=== PATIENT | female | born 1975 | race Caucasian/White ===

== ENCOUNTER 2017-11-02 08:31 | Outpatient (CLI) | payer MEDICARE | END 2017-11-02 08:32 | disposition home or self-care (01) | LOC: BICMAMMO 08:31 | PROVIDERS: ATTEND Family Medicine | DX: Z12.31 Encounter for screening mammogram for malignant neoplasm of breast (principal); Z01.419 Encounter for gynecological examination (general) (routine) without abnormal findings; Z80.3 Family history of malignant neoplasm of breast | CPT/HCPCS: 77063; 77067 ==

== ENCOUNTER 2019-01-08 14:56 | Outpatient (CLI) | payer MEDICARE ==
--- NOTE | 2019-01-08 15:28 | MMO ---
Bilateral MAMMO Bilat Screen [facility]. CLINICAL HISTORY: Patient is 43 years old and is seen for screening. The patient has the following family history of breast cancer: mother, at age 53. The patient has no personal history of cancer. VIEWS: The views performed were: bilateral craniocaudal with tomosynthesis and bilateral mediolateral oblique with tomosynthesis. FILMS COMPARED: The present examination has been compared to prior imaging studies performed at [facility] on 10/23/2016 and 11/02/2017. MAMMOGRAM FINDINGS: There are scattered fibroglandular densities. There are no suspicious masses, suspicious calcifications, or new areas of architectural distortion. IMPRESSION: THERE IS NO MAMMOGRAPHIC EVIDENCE OF MALIGNANCY. A ROUTINE FOLLOW-UP MAMMOGRAM IN 1 YEAR IS RECOMMENDED. THE RESULTS OF THIS EXAM WERE SENT TO THE PATIENT. ACR BI-RADS Category 1 - Negative MAMMOGRAPHY NOTE: 1. A negative mammogram report should not delay a biopsy if a dominant of clinically suspicious mass is present. 2. Approximately 10% to 15% of breast cancers are not detected by mammography. 3. Adenosis and dense breasts may obscure an underlying neoplasm. Reported by: DAVID MEJIA MD Electonically Signed: [id number]
== END 2019-01-08 14:57 | disposition home or self-care (01) ==
LOC: BICMAMMO 14:56
PROVIDERS: ATTEND Family Medicine
DX: Z12.31 Encounter for screening mammogram for malignant neoplasm of breast (principal); Z80.3 Family history of malignant neoplasm of breast
CPT/HCPCS: 77063; 77067

== ENCOUNTER 2020-02-11 12:49 | Outpatient (CLI) | payer MEDICARE ==
--- NOTE | 2020-02-11 13:11 | MMO ---
Bilateral MAMMO Bilat Screen [facility]. CLINICAL HISTORY: Patient is 44 years old and is seen for screening. The patient has the following family history of breast cancer: mother, at age 53. The patient has no personal history of cancer. VIEWS: The views performed were: bilateral craniocaudal with tomosynthesis and bilateral mediolateral oblique with tomosynthesis. FILMS COMPARED: The present examination has been compared to prior imaging studies performed at [facility] on 10/23/2016, 11/02/2017 and 01/08/2019. This study has been interpreted with the assistance of computer-aided detection. MAMMOGRAM FINDINGS: There are scattered fibroglandular densities. There are no suspicious masses, suspicious calcifications, or new areas of architectural distortion. IMPRESSION: THERE IS NO MAMMOGRAPHIC EVIDENCE OF MALIGNANCY. A ROUTINE FOLLOW-UP MAMMOGRAM IN 1 YEAR IS RECOMMENDED. THE RESULTS OF THIS EXAM WERE SENT TO THE PATIENT. ACR BI-RADS Category 1 - Negative MAMMOGRAPHY NOTE: 1. A negative mammogram report should not delay a biopsy if a dominant of clinically suspicious mass is present. 2. Approximately 10% to 15% of breast cancers are not detected by mammography. 3. Adenosis and dense breasts may obscure an underlying neoplasm. Reported by: DAVID MEJIA MD Electonically Signed: [id number]
== END 2020-02-11 12:50 | disposition home or self-care (01) ==
LOC: BICMAMMO 12:49
PROVIDERS: ATTEND Family Medicine
DX: Z12.31 Encounter for screening mammogram for malignant neoplasm of breast (principal); Z80.3 Family history of malignant neoplasm of breast
CPT/HCPCS: 77063; 77067

== ENCOUNTER 2020-10-08 19:30 | Outpatient (CLI) | payer MEDICARE | END 2020-10-08 19:31 | disposition home or self-care (01) | LOC: SLEEPLAB 19:30 | PROVIDERS: ATTEND Family Medicine | DX: F51.9 Sleep disorder not due to a substance or known physiological condition, unspecified (principal); G47.10 Hypersomnia, unspecified; G47.33 Obstructive sleep apnea (adult) (pediatric); R53.83 Other fatigue; R09.89 Other specified symptoms and signs involving the circulatory and respiratory systems; R51.9 Headache, unspecified; R06.83 Snoring; G47.00 Insomnia, unspecified; J45.909 Unspecified asthma, uncomplicated; E66.9 Obesity, unspecified; Z68.41 Body mass index [BMI] 40.0-44.9, adult | CPT/HCPCS: 95810 ==

== ENCOUNTER 2021-03-09 11:33 | Outpatient (CLI) | payer MEDICARE | END 2021-03-09 11:34 | disposition home or self-care (01) | LOC: BICMAMMO 11:33 | PROVIDERS: ATTEND Family Medicine | DX: Z12.31 Encounter for screening mammogram for malignant neoplasm of breast (principal); Z80.3 Family history of malignant neoplasm of breast | CPT/HCPCS: 77063; 77067 ==

== ENCOUNTER 2021-08-20 15:33 | Inpatient (IN) | payer MEDICARE, OTHER ==
[2021-08-20] MEDS ORDERED: Fentanyl 100 MCG/2 ML VIAL ONE ×2 (16:39→18:51)
[2021-08-20] MEDS ORDERED: Ondansetron PF 4 MG/2 ML Vial IVP PRN (16:52)
[2021-08-20] MEDS ORDERED: Acetaminophen 650 MG Suppository PR PRN (16:52)
[2021-08-20] MEDS ORDERED: Ondansetron ODT 4 MG TAB PO PRN (16:52)
[2021-08-20 17:06] LABS: PTT 28.9 sec (22.9-36.1); Prothrombin Time 13.4 sec (12.0-14.7)
[2021-08-20 17:08] LABS: Lactic Acid 3.6 mmol/L (0.5-2.2)
[2021-08-20] MEDS ORDERED: Ondansetron PF 4 MG/2 ML Vial ONE ×2 (17:35→19:03)
[2021-08-20] MEDS ORDERED: Piperacillin/Tazobactam 3.375 GM in Sodium Chloride 0.9% 100 ML IVPB SCH (18:00)
[2021-08-20] MEDS ORDERED: EPINEPHrine 1 MG/ML AMP ONE (18:20)
[2021-08-20] MEDS ORDERED: Bupivacaine 0.25% 10 ML VIAL ONE (18:20)
[2021-08-20] MEDS ORDERED: Famotidine/PF 20 mg/2ml Vial ONE (18:42)
[2021-08-20] MEDS ORDERED: Scopolamine 1.5 mg/72 hour Patch ONE (18:42)
[2021-08-20] MEDS ORDERED: Midazolam HCl 2 mg/2 ml Vial ONE (18:42)
[2021-08-20] MEDS ORDERED: Phenylephrine 10 MG/ML VIAL ONE (18:52)
[2021-08-20] MEDS ORDERED: SUGAMMADEX SODIUM 200 MG/2 ML VIAL ONE (18:52)
[2021-08-20] MEDS ORDERED: Dexamethasone 20 MG/5 ML VIAL ONE (19:03)
[2021-08-20] MEDS ORDERED: Vecuronium 10 MG VIAL ONE (19:03)
[2021-08-20] MEDS ORDERED: PROPOFOL 200 MG/20 ML VIAL ONE (19:03)
[2021-08-20] MEDS ORDERED: Lidocaine 1% PF 5 ML VIAL ONE (19:03)
[2021-08-20] MEDS ORDERED: Glycopyrrolate 0.2 MG/ML 5 ML SYRINGE ONE (19:03)
[2021-08-20] MEDS ORDERED: Rocuronium Bromide 10 MG/ML (10ML VIAL) ONE (19:03)
[2021-08-20] MEDS ORDERED: Promethazine HCl 25 MG/ML VIAL IVPB PRN (19:33)
[2021-08-20] MEDS ORDERED: Promethazine HCl 25 MG/ML VIAL IM PRN (19:33)
[2021-08-20] MEDS ORDERED: Ondansetron HCl/PF 4 MG/2 ML Vial IVP PRN (19:33)
[2021-08-20] MEDS: Acetaminophen 325 MG TAB PO PRN (22:16)
[2021-08-20] MEDS: Famotidine 20 MG TAB PO SCH (22:16)
[2021-08-20] MEDS: Sodium Chloride 0.9% 1,000 ML IV SCH (22:16)
[2021-08-20] MEDS: Famotidine/PF 20 mg/2ml Vial SLOW IVP SCH (22:17)
[2021-08-20] MEDS ORDERED: Morphine 4 MG/ML VIAL SLOW IVP PRN (22:30)
[2021-08-20 22:36] VITALS: BMI 40.6
[2021-08-20] MEDS: cefOXitin 2 GM in Sodium Chloride 0.9% 100 ML IVPB SCH (23:24)
[2021-08-21] MEDS: Acetaminophen 325 MG TAB PO PRN ×3 (05:10→20:51)
[2021-08-21] MEDS: cefOXitin 2 GM in Sodium Chloride 0.9% 100 ML IVPB SCH (05:11)
[2021-08-21] MEDS: Sodium Chloride 0.9% 1,000 ML IV SCH ×3 (05:11→20:48)
[2021-08-21 07:27] LABS: ALT (SGPT) 14 U/L (8-55); AST (SGOT) 12 U/L (5-34); Albumin 3.3 g/dL (3.5-5.0); Alkaline Phosphatase 74 U/L (40-110); Anion Gap 14 mmol/L (10-20); BUN (Urea Nitrogen) 12 mg/dL (7.0-18.7); Bilirubin, Total 0.6 mg/dL (0.2-1.2); Calc. Creatinine Clearance 126 mL/min (70-130); Calcium 8.5 mg/dL (7.8-10.44); Carbon Dioxide 22 mmol/L (22-29); Chloride 102 mmol/L (98-107); Globulin 3.2 g/dL (2.4-3.5); Glucose 177 mg/dL (70-105); Magnesium 1.6 mg/dL (1.6-2.6); Potassium 3.5 mmol/L (3.5-5.1); Protein, Total 6.5 g/dL (6.0-8.3); Sodium 134 mmol/L (136-145)
[2021-08-21 07:28] LABS: #Lymphocytes 0.6 thou/uL (1.20-3.40); #Monocytes 0.5 thou/uL (0.11-0.59); #Neutrophils 14.3 thou/uL (1.40-6.50); %Basophils 0.1 % (0.0-1.0); %Eosinophils 0.1 % (0.0-10.0); %Lymphocytes 3.8 % (21.0-51.0); %Monocytes 3.2 % (0.0-10.0); %Neutrophils 92.8 % (42.0-75.0); Hemoglobin 11.6 g/dL (12.0-16.0); Mean Corpuscular HGB CONC 32.1 g/dL (32.0-36.0); Mean Corpuscular Hemoglobin 28.9 pg (27.0-31.0); Mean Corpuscular Volume 90.1 fL (78.0-98.0); Mean Platelet Volume 8.6 fL (7.4-10.4); Platelet Count 212 thou/uL (130-400); RBC Distribution Width 14.5 % (11.5-14.5); Red Blood Cell (RBC) Count 4.01 mill/uL (4.20-5.40); White Blood Cell (WBC) Count 15.5 thou/uL (4.8-10.8)
[2021-08-21] MEDS: Famotidine 20 MG TAB PO SCH ×2 (08:13→20:51)
[2021-08-21] MEDS: Famotidine/PF 20 mg/2ml Vial SLOW IVP SCH ×2 (08:16→20:51)
[2021-08-21] MEDS ORDERED: Potassium Chloride 20 MEQ TAB PO SCH (10:00)
[2021-08-21] MEDS: traMADol HCl 50 MG TAB PO PRN ×2 (10:51→16:21)
[2021-08-21] MEDS: metroNIDAZOLE 500 MG TAB PO SCH ×2 (14:30→20:50)
[2021-08-21] MEDS: tiZANidine HCl 4 MG TAB PO PRN (20:50)
[2021-08-21] MEDS: Ciprofloxacin 500 MG TAB PO SCH (20:50)
[2021-08-21] MEDS: Fish Oil 1,000 MG CAP PO SCH (20:50)
[2021-08-21] MEDS: predniSONE 50 MG TAB PO SCH (20:51)
[2021-08-21] MEDS: Loratadine 10 MG TAB PO SCH (20:51)
[2021-08-21] MEDS: Montelukast Sodium 10 mg Tablet PO SCH (20:51)
[2021-08-21] MEDS: Fluticasone Propionate Nasal Spray 16 gm Bottle NASAL SCH (20:52)
[2021-08-22] MEDS: Sodium Chloride 0.9% 1,000 ML IV SCH ×3 (02:08→18:05)
[2021-08-22] MEDS: predniSONE 50 MG TAB PO SCH ×2 (02:08→07:48)
[2021-08-22] MEDS: Acetaminophen 325 MG TAB PO PRN ×2 (05:45→20:27)
[2021-08-22] MEDS: Ciprofloxacin 500 MG TAB PO SCH ×2 (05:45→20:27)
[2021-08-22] MEDS: tiZANidine HCl 4 MG TAB PO PRN ×2 (05:45→20:27)
[2021-08-22 06:35] LABS: #Lymphocytes 0.6 thou/uL (1.20-3.40); #Monocytes 0.5 thou/uL (0.11-0.59); #Neutrophils 11.2 thou/uL (1.40-6.50); %Basophils 0.1 % (0.0-1.0); %Eosinophils 0.1 % (0.0-10.0); %Lymphocytes 4.5 % (21.0-51.0); %Monocytes 3.8 % (0.0-10.0); %Neutrophils 91.5 % (42.0-75.0); Hemoglobin 10.2 g/dL (12.0-16.0); Mean Corpuscular HGB CONC 31.7 g/dL (32.0-36.0); Mean Corpuscular Volume 91.5 fL (78.0-98.0); Mean Platelet Volume 8.8 fL (7.4-10.4); Platelet Count 202 thou/uL (130-400); RBC Distribution Width 14.5 % (11.5-14.5); Red Blood Cell (RBC) Count 3.52 mill/uL (4.20-5.40); White Blood Cell (WBC) Count 12.3 thou/uL (4.8-10.8)
[2021-08-22 06:55] LABS: Anion Gap 11 mmol/L (10-20); BUN (Urea Nitrogen) 9 mg/dL (7.0-18.7); Calc. Creatinine Clearance 168 mL/min (70-130); Calcium 8.8 mg/dL (7.8-10.44); Carbon Dioxide 25 mmol/L (22-29); Chloride 104 mmol/L (98-107); Glucose 164 mg/dL (70-105); Potassium 4.4 mmol/L (3.5-5.1); Sodium 136 mmol/L (136-145)
[2021-08-22] MEDS: Fluticasone Propionate Nasal Spray 16 gm Bottle NASAL SCH ×2 (07:47→20:28)
[2021-08-22] MEDS: metroNIDAZOLE 500 MG TAB PO SCH ×3 (07:47→20:26)
[2021-08-22] MEDS: Cholecalciferol 1,000 UNITS (25 MCG) TAB PO SCH (07:48)
[2021-08-22] MEDS: Famotidine 20 MG TAB PO SCH ×2 (07:48→20:26)
[2021-08-22] MEDS: Amitriptyline HCl 25 MG TAB PO SCH (07:48)
[2021-08-22] MEDS: Famotidine/PF 20 mg/2ml Vial SLOW IVP SCH ×2 (07:56→20:27)
[2021-08-22] MEDS ORDERED: diphenhydrAMINE 50 MG CAP PO SCH (08:00)
[2021-08-22] MEDS: traMADol HCl 50 MG TAB PO PRN (11:43)
[2021-08-22] MEDS ORDERED: Iopamidol-370 76% 500 ML 1 ML ONE (14:50)
[2021-08-22] MEDS ORDERED: diphenhydrAMINE 50 MG/ML VIAL IVP PRN (16:27)
[2021-08-22] MEDS: Montelukast Sodium 10 mg Tablet PO SCH (20:26)
[2021-08-22] MEDS: Fish Oil 1,000 MG CAP PO SCH (20:26)
[2021-08-22] MEDS: Loratadine 10 MG TAB PO SCH (20:27)
[2021-08-23] MEDS: Sodium Chloride 0.9% 1,000 ML IV SCH ×2 (03:19→05:08)
[2021-08-23] MEDS: Ciprofloxacin 500 MG TAB PO SCH (05:08)
[2021-08-23 06:53] LABS: #Lymphocytes 1.5 thou/uL (1.20-3.40); #Monocytes 0.7 thou/uL (0.11-0.59); %Eosinophils 0.3 % (0.0-10.0); %Lymphocytes 14.9 % (21.0-51.0); %Monocytes 6.6 % (0.0-10.0); %Neutrophils 78.1 % (42.0-75.0); Hemoglobin 10.5 g/dL (12.0-16.0); Mean Corpuscular HGB CONC 32.4 g/dL (32.0-36.0); Mean Corpuscular Hemoglobin 29.4 pg (27.0-31.0); Mean Corpuscular Volume 90.7 fL (78.0-98.0); Mean Platelet Volume 8.4 fL (7.4-10.4); Platelet Count 222 thou/uL (130-400); RBC Distribution Width 14.2 % (11.5-14.5); Red Blood Cell (RBC) Count 3.57 mill/uL (4.20-5.40); White Blood Cell (WBC) Count 10.3 thou/uL (4.8-10.8)
[2021-08-23 07:08] LABS: Anion Gap 10 mmol/L (10-20); BUN (Urea Nitrogen) 10 mg/dL (7.0-18.7); Calc. Creatinine Clearance 180 mL/min (70-130); Calcium 8.7 mg/dL (7.8-10.44); Carbon Dioxide 26 mmol/L (22-29); Chloride 105 mmol/L (98-107); Glucose 94 mg/dL (70-105); Potassium 3.3 mmol/L (3.5-5.1); Sodium 138 mmol/L (136-145)
[2021-08-23] MEDS: Amitriptyline HCl 25 MG TAB PO SCH (07:46)
[2021-08-23] MEDS: traMADol HCl 50 MG TAB PO PRN ×2 (07:46→15:08)
[2021-08-23] MEDS: metroNIDAZOLE 500 MG TAB PO SCH ×2 (07:46→15:08)
[2021-08-23] MEDS: Cholecalciferol 1,000 UNITS (25 MCG) TAB PO SCH (07:46)
[2021-08-23] MEDS: Famotidine 20 MG TAB PO SCH (07:46)
[2021-08-23] MEDS: Famotidine/PF 20 mg/2ml Vial SLOW IVP SCH (07:50)
[2021-08-23] MEDS ORDERED: Magnesium 2 GM/50 ML(in water) 2 GM in Premix Bag 1 BAG IVPB SCH (08:00)
[2021-08-23 08:08] VITALS: BP 108/75; TEMP 98.1
[2021-08-23] MEDS: Fluticasone Propionate Nasal Spray 16 gm Bottle NASAL SCH (08:27)
[2021-08-23] MEDS ORDERED: Potassium Chloride 20 MEQ TAB PO SCH (08:45)
[2021-08-23] MEDS ORDERED: Potassium Phosphate 30 MMOL in Sodium Chloride 0.9% 250 ML 250 ML IVPB SCH (09:00)
[2021-08-23] MEDS: Acetaminophen 325 MG TAB PO PRN (10:31)
== END 2021-08-23 18:37 | disposition home or self-care (01) | DRG 853 ==
LOC: ERS 15:33 → SDC 17:04 → T4-A 21:50 → OBSVTOIN 08-22 12:49 → UNDODISIN 08-23 15:14
PROVIDERS: ADMIT Internal Medicine; ATTEND Hospitalist
PROC: 0DTJ4ZZ Resection of Appendix, Percutaneous Endoscopic Approach (ICD-10-PCS; principal; 2021-08-20)
PROC: 0W9J4ZZ Drainage of Pelvic Cavity, Percutaneous Endoscopic Approach (ICD-10-PCS; 2021-08-20)
DX: A41.9 Sepsis, unspecified organism (principal); U07.1 COVID-19; K35.21 Acute appendicitis with generalized peritonitis, with abscess; E87.2 Acidosis; Z68.41 Body mass index [BMI] 40.0-44.9, adult; N73.9 Female pelvic inflammatory disease, unspecified; K58.9 Irritable bowel syndrome, unspecified; K21.9 Gastro-esophageal reflux disease without esophagitis; J30.2 Other seasonal allergic rhinitis; H53.2 Diplopia; E66.9 Obesity, unspecified; E87.6 Hypokalemia; E86.0 Dehydration; R51.9 Headache, unspecified; Z79.899 Other long term (current) drug therapy; Z88.5 Allergy status to narcotic agent; Z88.0 Allergy status to penicillin; Z88.2 Allergy status to sulfonamides; Z88.8 Allergy status to other drugs, medicaments and biological substances; Z82.49 Family history of ischemic heart disease and other diseases of the circulatory system; Z83.3 Family history of diabetes mellitus
CPT/HCPCS: 36415; 71275; 80048; 80053; 83605; 83735; 85025; 85610; 85730; 86140; 88304; 93970; 96374; 96376; G0378; J0171; J0694; J1100; J1200; J2250; J2370; J2405; J2704; J3010; J3475; J3490; J7050; J7512; Q9967; S0020; S0028

== ENCOUNTER 2021-08-25 19:56 | Inpatient (IN) | payer MEDICARE ==
[2021-08-25] MEDS ORDERED: Fentanyl 100 MCG/2 ML VIAL SLOW IVP PRN (20:56)
[2021-08-25] MEDS ORDERED: Sodium Chloride 0.9% 1,000 ML IV SCH ×2 (21:00→22:27)
[2021-08-25] MEDS ORDERED: Ondansetron PF 4 MG/2 ML Vial IVP PRN (21:00)
[2021-08-25] MEDS ORDERED: Ondansetron ODT 4 MG TAB SL PRN (21:00)
[2021-08-25] MEDS ORDERED: Senokot S 8.6-50 MG TAB PO PRN (22:23)
[2021-08-25] MEDS ORDERED: Bisacodyl 5 MG TAB PO PRN (22:23)
[2021-08-25] MEDS ORDERED: Enoxaparin Sodium 40 MG/0.4 ML SYRINGE SC SCH (22:30)
[2021-08-25] MEDS: Acetaminophen 325 MG TAB PO PRN (22:48)
[2021-08-26] MEDS ORDERED: Pantoprazole 40 MG VIAL IVP SCH (01:44)
[2021-08-26] MEDS ORDERED: predniSONE 50 MG TAB PO SCH (03:00)
[2021-08-26] MEDS: Acetaminophen 325 MG TAB PO PRN (05:41)
[2021-08-26 05:50] LABS: ALT (SGPT) 10 U/L (8-55); AST (SGOT) 11 U/L (5-34); Albumin 3.1 g/dL (3.5-5.0); Alkaline Phosphatase 102 U/L (40-110); Anion Gap 18 mmol/L (10-20); BUN (Urea Nitrogen) 6 mg/dL (7.0-18.7); Band 6 % (5-11); Bilirubin, Total 0.5 mg/dL (0.2-1.2); Calc. Creatinine Clearance 202 mL/min (70-130); Calcium 8.7 mg/dL (7.8-10.44); Carbon Dioxide 25 mmol/L (22-29); Chloride 97 mmol/L (98-107); Differential Comment Plasma-cytoid Cells; Globulin 3.4 g/dL (2.4-3.5); Glucose 92 mg/dL (70-105); Hemoglobin 11.8 g/dL (12.0-16.0); Lymphocytes 8 % (21-51); MDiff Complete? YES; Mean Corpuscular HGB CONC 32.3 g/dL (32.0-36.0); Mean Corpuscular Hemoglobin 29.4 pg (27.0-31.0); Mean Corpuscular Volume 90.9 fL (78.0-98.0); Mean Platelet Volume 8.6 fL (7.4-10.4); Monocytes 12 % (0-10); Neutrophil 73 % (42-75); Platelet Count 212 thou/uL (130-400); Potassium 3.5 mmol/L (3.5-5.1); Protein, Total 6.5 g/dL (6.0-8.3); RBC Distribution Width 14.3 % (11.5-14.5); Red Blood Cell (RBC) Count 4.03 mill/uL (4.20-5.40); Sodium 136 mmol/L (136-145); White Blood Cell (WBC) Count 14.3 thou/uL (4.8-10.8)
[2021-08-26] MEDS ORDERED: Fentanyl 100 MCG/2 ML VIAL SLOW IVP PRN (08:07)
[2021-08-26] MEDS ORDERED: Cefepime 1 GM in Sodium Chloride 0.9% 100 ML IVPB SCH (09:00)
[2021-08-26] MEDS: methylPREDNISolone Sod Succ 40 MG VIAL IVP SCH (09:04)
[2021-08-26] MEDS: Pantoprazole 40 MG VIAL IVP SCH (09:04)
[2021-08-26] MEDS: Fioricet 325/50/40 mg Tablet PO PRN ×2 (13:14→22:25)
[2021-08-26] MEDS ORDERED: Iopamidol-370 76% 500 ML 1 ML ONE (14:35)
[2021-08-26] MEDS ORDERED: methylPREDNISolone Sod Succ/PF 125 MG/2 ML VIAL IVP SCH (14:45)
[2021-08-26] MEDS ORDERED: diphenhydrAMINE 50 MG CAP PO SCH (15:00)
[2021-08-26] MEDS: Cefepime 2 GM in Sodium Chloride 0.9% 100 ML IVPB SCH (22:17)
[2021-08-26] MEDS: Enoxaparin Sodium 40 MG/0.4 ML SYRINGE SC SCH (22:18)
[2021-08-27 05:16] LABS: #Lymphocytes 1.3 thou/uL (1.20-3.40); #Monocytes 1.7 thou/uL (0.11-0.59); %Basophils 0.1 % (0.0-1.0); %Eosinophils 0.3 % (0.0-10.0); %Lymphocytes 9.2 % (21.0-51.0); %Monocytes 11.8 % (0.0-10.0); %Neutrophils 78.6 % (42.0-75.0); Hemoglobin 10.6 g/dL (12.0-16.0); Mean Corpuscular HGB CONC 32.4 g/dL (32.0-36.0); Mean Corpuscular Hemoglobin 29.3 pg (27.0-31.0); Mean Corpuscular Volume 90.5 fL (78.0-98.0); Mean Platelet Volume 7.9 fL (7.4-10.4); Platelet Count 314 thou/uL (130-400); RBC Distribution Width 14.1 % (11.5-14.5); Red Blood Cell (RBC) Count 3.61 mill/uL (4.20-5.40)
[2021-08-27 05:36] LABS: Anion Gap 13 mmol/L (10-20); BUN (Urea Nitrogen) 8 mg/dL (7.0-18.7); Calc. Creatinine Clearance 216 mL/min (70-130); Calcium 8.5 mg/dL (7.8-10.44); Carbon Dioxide 28 mmol/L (22-29); Chloride 99 mmol/L (98-107); Glucose 131 mg/dL (70-105); Potassium 3.5 mmol/L (3.5-5.1); Sodium 136 mmol/L (136-145)
[2021-08-27] MEDS: Fioricet 325/50/40 mg Tablet PO PRN (07:16)
[2021-08-27] MEDS: Cefepime 2 GM in Sodium Chloride 0.9% 100 ML IVPB SCH ×2 (07:59→20:25)
[2021-08-27] MEDS: Pantoprazole 40 MG VIAL IVP SCH (07:59)
[2021-08-27] MEDS: methylPREDNISolone Sod Succ 40 MG VIAL IVP SCH (07:59)
[2021-08-27] MEDS ORDERED: Acetaminophen 325 MG TAB PO PRN (09:56)
[2021-08-27] MEDS ORDERED: traMADol HCl 50 MG TAB PO PRN (09:56)
[2021-08-27] MEDS ORDERED: GUAIFENESIN SF SOLN 200 MG/10 ML UDCUP PO PRN (09:58)
[2021-08-27] MEDS: Floranex 1 GM Packet PO SCH ×2 (10:55→20:25)
[2021-08-27] MEDS: Benzonatate 100 MG CAP PO SCH ×2 (14:20→20:27)
[2021-08-27] MEDS: Fluticasone Propionate Nasal Spray 16 gm Bottle NASAL SCH (20:25)
[2021-08-27] MEDS: Enoxaparin Sodium 40 MG/0.4 ML SYRINGE SC SCH (20:26)
[2021-08-27] MEDS: Montelukast Sodium 10 mg Tablet PO SCH (20:27)
[2021-08-27] MEDS: traZODone HCl 50 MG TAB PO PRN (20:46)
[2021-08-27] MEDS: Amitriptyline HCl 25 MG TAB PO SCH (20:46)
[2021-08-27] MEDS: Nystatin Ointment 15 GM TUBE TOP SCH (20:50)
[2021-08-27] MEDS ORDERED: Fluconazole 100 MG TAB PO SCH (21:00)
[2021-08-28 05:54] LABS: #Eosinphils 0.1 thou/uL (0.0-0.7); #Lymphocytes 2.6 thou/uL (1.20-3.40); #Monocytes 0.9 thou/uL (0.11-0.59); %Basophils 0.4 % (0.0-1.0); %Eosinophils 1.2 % (0.0-10.0); %Lymphocytes 30.2 % (21.0-51.0); %Monocytes 10.7 % (0.0-10.0); %Neutrophils 57.5 % (42.0-75.0); Hemoglobin 10.2 g/dL (12.0-16.0); Mean Corpuscular HGB CONC 32.6 g/dL (32.0-36.0); Mean Corpuscular Hemoglobin 29.1 pg (27.0-31.0); Mean Corpuscular Volume 89.3 fL (78.0-98.0); Mean Platelet Volume 7.5 fL (7.4-10.4); Platelet Count 291 thou/uL (130-400); RBC Distribution Width 14.3 % (11.5-14.5); Red Blood Cell (RBC) Count 3.52 mill/uL (4.20-5.40); White Blood Cell (WBC) Count 8.6 thou/uL (4.8-10.8)
[2021-08-28 06:14] LABS: Anion Gap 12 mmol/L (10-20); BUN (Urea Nitrogen) 8 mg/dL (7.0-18.7); Calc. Creatinine Clearance 214 mL/min (70-130); Calcium 8.3 mg/dL (7.8-10.44); Carbon Dioxide 30 mmol/L (22-29); Chloride 99 mmol/L (98-107); Glucose 93 mg/dL (70-105); Potassium 3.1 mmol/L (3.5-5.1); Sodium 138 mmol/L (136-145)
[2021-08-28] MEDS: Fluticasone Propionate Nasal Spray 16 gm Bottle NASAL SCH ×2 (08:43→20:17)
[2021-08-28] MEDS: Floranex 1 GM Packet PO SCH ×2 (08:43→20:16)
[2021-08-28] MEDS: Cholecalciferol 1,000 UNITS (25 MCG) TAB PO SCH (08:44)
[2021-08-28] MEDS: methylPREDNISolone Sod Succ 40 MG VIAL IVP SCH (08:44)
[2021-08-28] MEDS: Pantoprazole 40 MG VIAL IVP SCH (08:44)
[2021-08-28] MEDS: Benzonatate 100 MG CAP PO SCH ×3 (08:44→20:16)
[2021-08-28] MEDS: Nystatin Ointment 15 GM TUBE TOP SCH ×2 (08:45→20:18)
[2021-08-28] MEDS: Cefepime 2 GM in Sodium Chloride 0.9% 100 ML IVPB SCH (08:45)
[2021-08-28] MEDS ORDERED: Amitriptyline HCl 25 MG TAB PO SCH (09:00)
[2021-08-28] MEDS: Fioricet 325/50/40 mg Tablet PO PRN ×2 (09:41→22:30)
[2021-08-28] MEDS ORDERED: Ondansetron PF 4 MG/2 ML Vial IVP PRN (14:09)
[2021-08-28] MEDS: tiZANidine HCl 4 MG TAB PO PRN (17:23)
[2021-08-28] MEDS: Amitriptyline HCl 25 MG TAB PO SCH (20:16)
[2021-08-28] MEDS: Enoxaparin Sodium 40 MG/0.4 ML SYRINGE SC SCH (20:17)
[2021-08-28] MEDS: Montelukast Sodium 10 mg Tablet PO SCH (20:17)
[2021-08-28] MEDS: traZODone HCl 50 MG TAB PO PRN (20:33)
[2021-08-28] MEDS ORDERED: Fish Oil 1,000 MG CAP PO SCH (21:00)
[2021-08-29 06:15] VITALS: BMI 41.8
[2021-08-29 08:46] LABS: #Eosinphils 0.1 thou/uL (0.0-0.7); #Lymphocytes 2.3 thou/uL (1.20-3.40); #Monocytes 0.6 thou/uL (0.11-0.59); #Neutrophils 5.7 thou/uL (1.40-6.50); %Basophils 0.5 % (0.0-1.0); %Eosinophils 1.1 % (0.0-10.0); %Lymphocytes 26.5 % (21.0-51.0); %Monocytes 6.6 % (0.0-10.0); %Neutrophils 65.4 % (42.0-75.0); Mean Corpuscular HGB CONC 31.6 g/dL (32.0-36.0); Mean Corpuscular Hemoglobin 28.6 pg (27.0-31.0); Mean Corpuscular Volume 90.4 fL (78.0-98.0); Mean Platelet Volume 7.4 fL (7.4-10.4); Platelet Count 324 thou/uL (130-400); RBC Distribution Width 14.4 % (11.5-14.5); Red Blood Cell (RBC) Count 3.86 mill/uL (4.20-5.40); White Blood Cell (WBC) Count 8.7 thou/uL (4.8-10.8)
[2021-08-29] MEDS: Cholecalciferol 1,000 UNITS (25 MCG) TAB PO SCH (08:56)
[2021-08-29] MEDS: Floranex 1 GM Packet PO SCH (08:56)
[2021-08-29] MEDS: methylPREDNISolone Sod Succ 40 MG VIAL IVP SCH (08:56)
[2021-08-29] MEDS: Pantoprazole 40 MG VIAL IVP SCH (08:56)
[2021-08-29] MEDS: Nystatin Ointment 15 GM TUBE TOP SCH (08:57)
[2021-08-29] MEDS: Benzonatate 100 MG CAP PO SCH ×2 (08:57→14:57)
[2021-08-29 08:58] LABS: Anion Gap 15 mmol/L (10-20); BUN (Urea Nitrogen) 9 mg/dL (7.0-18.7); Calc. Creatinine Clearance 178 mL/min (70-130); Calcium 8.8 mg/dL (7.8-10.44); Carbon Dioxide 29 mmol/L (22-29); Chloride 99 mmol/L (98-107); Glucose 126 mg/dL (70-105); Potassium 3.5 mmol/L (3.5-5.1); Sodium 139 mmol/L (136-145)
[2021-08-29] MEDS: Fluticasone Propionate Nasal Spray 16 gm Bottle NASAL SCH (09:28)
[2021-08-29] MEDS: tiZANidine HCl 4 MG TAB PO PRN (09:28)
[2021-08-29 16:15] VITALS: BP 131/82; TEMP 98
== END 2021-08-29 16:40 | disposition home or self-care (01) | DRG 187 ==
LOC: SURG A 20:29 → OBSVTOIN 08-26 11:11
PROVIDERS: ADMIT Internal Medicine; ATTEND Internal Medicine
DX: J90 Pleural effusion, not elsewhere classified (principal); J98.11 Atelectasis; Z68.41 Body mass index [BMI] 40.0-44.9, adult; G47.33 Obstructive sleep apnea (adult) (pediatric); E87.6 Hypokalemia; K21.9 Gastro-esophageal reflux disease without esophagitis; K58.0 Irritable bowel syndrome with diarrhea; E66.01 Morbid (severe) obesity due to excess calories; G47.00 Insomnia, unspecified; Z88.0 Allergy status to penicillin; Z88.2 Allergy status to sulfonamides; Z88.8 Allergy status to other drugs, medicaments and biological substances; Z91.041 Radiographic dye allergy status; Z79.899 Other long term (current) drug therapy; Z90.89 Acquired absence of other organs; Z80.3 Family history of malignant neoplasm of breast; Z82.49 Family history of ischemic heart disease and other diseases of the circulatory system; Z80.0 Family history of malignant neoplasm of digestive organs; Z90.49 Acquired absence of other specified parts of digestive tract
CPT/HCPCS: 36415; 71048; 71275; 80048; 80053; 85025; 87040; 87324; 87449; C9113; J0692; J1650; J2405; J2920; J2930; J3010; J3490; J7050; J7512; Q9967

== ENCOUNTER 2021-11-16 09:58 | Outpatient (CLI) | payer MEDICARE | END 2021-11-16 09:59 | disposition home or self-care (01) | LOC: RAD 09:58 | PROVIDERS: ATTEND Internal Medicine Critical Care Medicine | DX: R06.09 Other forms of dyspnea (principal); J90 Pleural effusion, not elsewhere classified | CPT/HCPCS: 71046 ==

== ENCOUNTER 2022-05-24 11:37 | Outpatient (CLI) | payer MEDICARE, OTHER | END 2022-05-24 11:38 | disposition home or self-care (01) | LOC: BICMAMMO 11:37 | PROVIDERS: ATTEND Family Medicine | DX: Z12.31 Encounter for screening mammogram for malignant neoplasm of breast (principal); Z80.3 Family history of malignant neoplasm of breast | CPT/HCPCS: 77063; 77067 ==

== ENCOUNTER 2023-05-25 13:26 | Outpatient (CLI) | payer MEDICARE, OTHER | END 2023-05-25 13:27 | disposition home or self-care (01) | LOC: BICMAMMO 13:26 | PROVIDERS: ATTEND Family Medicine | DX: Z12.31 Encounter for screening mammogram for malignant neoplasm of breast (principal); Z80.3 Family history of malignant neoplasm of breast | CPT/HCPCS: 77063; 77067 ==